=== PATIENT | female | born 1995 | race Caucasian/White ===

== ENCOUNTER → 2019-04-09 | Outpatient (CLI) | payer BC | END | disposition home or self-care (01) | LOC: RAH 13:59 | PROVIDERS: ATTEND Family Medicine | DX: M41.84 Other forms of scoliosis, thoracic region (principal); R07.89 Other chest pain; R29.3 Abnormal posture; M95.4 Acquired deformity of chest and rib; M85.88 Other specified disorders of bone density and structure, other site | CPT/HCPCS: 71046; 71120; 72082 ==

== ENCOUNTER → 2023-07-04 | Outpatient (CLI) | payer BC | END | disposition home or self-care (01) | LOC: RAH 15:34 | PROVIDERS: ATTEND Family Medicine | DX: M41.125 Adolescent idiopathic scoliosis, thoracolumbar region (principal); M41.85 Other forms of scoliosis, thoracolumbar region; M51.37 Other intervertebral disc degeneration, lumbosacral region | CPT/HCPCS: 72082 ==

== ENCOUNTER → 2023-07-18 | Outpatient (CLI) | payer BC | END | disposition home or self-care (01) | LOC: RAH 14:53 | PROVIDERS: ATTEND Family Medicine | DX: M41.125 Adolescent idiopathic scoliosis, thoracolumbar region (principal); M54.6 Pain in thoracic spine; M41.84 Other forms of scoliosis, thoracic region | CPT/HCPCS: 72146 ==

== ENCOUNTER → 2023-11-05 | Outpatient (CLI) | payer BC | END | disposition home or self-care (01) | LOC: RAH 13:00 | PROVIDERS: ATTEND Family Medicine | DX: M41.26 Other idiopathic scoliosis, lumbar region (principal); M51.37 Other intervertebral disc degeneration, lumbosacral region; M54.59 Other low back pain | CPT/HCPCS: 72148 ==

== ENCOUNTER → 2024-06-03 | Outpatient (CLI) | payer BC | END | disposition home or self-care (01) | LOC: CANPRECLI → RAH 14:35 | PROVIDERS: ATTEND Orthopaedic Surgery Orthopaedic Surgery of the Spine | DX: J44.9 Chronic obstructive pulmonary disease, unspecified (principal); M41.84 Other forms of scoliosis, thoracic region; M47.815 Spondylosis without myelopathy or radiculopathy, thoracolumbar region; M47.817 Spondylosis without myelopathy or radiculopathy, lumbosacral region; M51.36 Other intervertebral disc degeneration, lumbar region; R91.1 Solitary pulmonary nodule; M54.9 Dorsalgia, unspecified | CPT/HCPCS: 71250; 72131 ==

== ENCOUNTER → 2025-02-19 | Outpatient (CLI) | payer BC | END | disposition home or self-care (01) | LOC: SHCH 13:14 | PROVIDERS: ATTEND Student in an Organized Health Care Education/Training Program | DX: I35.1 Nonrheumatic aortic (valve) insufficiency (principal); R06.09 Other forms of dyspnea; R53.82 Chronic fatigue, unspecified | CPT/HCPCS: 93306 ==

== ENCOUNTER → 2025-04-15 | Outpatient (CLI) | payer BC ==
--- NOTE | 2025-04-15 15:56 | HMCIMG ---
Exam Type: THORACIC SPINE SERIES History: Pain in thoracic spine Comparison: none Findings: The thoracic spine is well visualized. All pedicles and spinous processes are intact. No fracture or bony lesions are identified. There is dextroscoliosis of the dorsal lumbar junction, and the disc spaces are normal. The visualized soft tissues are unremarkable. IMPRESSION: NORMAL THORACIC SPINE. Dextroscoliosis.
--- NOTE | 2025-04-15 15:57 | HMCIMG ---
Exam Type: CERV SPINE [id number] Clinical Information: Cervicalgia Comparison: None FINDINGS: C1 through the top of T1 are seen on the lateral view. The prevertebral soft tissues are normal. The vertebral bodies are well-aligned and without fracture. The disc spaces are normal as is the distance between the arch of C1 and the dens. The spinolaminar line is smooth and the spinous process tips intact. The AP view of the cervical spine is unremarkable. IMPRESSION: NEGATIVE CERVICAL SPINE SERIES.
== END | disposition home or self-care (01) ==
LOC: RAH 14:37
PROVIDERS: ATTEND Internal Medicine Nephrology
DX: M41.84 Other forms of scoliosis, thoracic region (principal); M54.2 Cervicalgia; M54.6 Pain in thoracic spine
CPT/HCPCS: 72040; 72070